=== PATIENT | female | born 1985 | race Caucasian/White ===

== ENCOUNTER 2021-09-09 19:04 | Emergency (ER) | payer SELFPAY ==
[2021-09-09] MEDS ORDERED: Lidocaine 1% PF 5 ML VIAL ONE (19:27)
[2021-09-09] MEDS ORDERED: Bacitracin 1 PK ONE (20:07)
== END 2021-09-09 20:21 | disposition home or self-care (01) ==
LOC: BURERS 19:04
DX: S61.411A Laceration without foreign body of right hand, initial encounter (principal); F17.290 Nicotine dependence, other tobacco product, uncomplicated; W25.XXXA Contact with sharp glass, initial encounter
CPT/HCPCS: 99282

== ENCOUNTER 2023-03-20 17:34 | Emergency (ER) | payer SELFPAY | END 2023-03-20 18:50 | disposition home or self-care (01) | LOC: BURERS 17:34 | DX: O20.0 Threatened abortion (principal); Z3A.09 9 weeks gestation of pregnancy; F17.290 Nicotine dependence, other tobacco product, uncomplicated | CPT/HCPCS: 36415; 86850; 86900; 86901; 99284 ==